=== PATIENT | male | born 1955 | race Caucasian/White ===

== ENCOUNTER 2016-07-08 13:10 | Emergency (ER) | payer OTHER ==
[2016-07-08] MEDS ORDERED: ALBUTEROL SO4 2.5/IPRATROPIUM 0.5 INH SOL 3 ML VIAL.NEB. NEB ONE ×5 (13:15→13:48)
[2016-07-08 13:20] VITALS: BMI 27.8
[2016-07-08] MEDS ORDERED: methylPREDNISolone NA SUCC 125 MG/2 ML VIAL IVPB ONE (13:25)
[2016-07-08] MEDS ORDERED: methylPREDNISolone NA SUCC 125 MG/2 ML VIAL ONE (13:31)
[2016-07-08] MEDS ORDERED: MAGNESIUM SULF 50% (8.12 MEQ/2 ML-1 GM VIAL) IVPB ONE (13:47)
--- NOTE | 2016-07-08 13:48 | PDOC ---
History of Present Illness - General Chief Complaint: Shortness of Breath Stated Complaint: SOB, COUGH Time Seen by Provider: 07/08/16 13:14 History Source: Patient Exam Limitations: No Limitations - History of Present Illness Initial Comments: 07/08/16 13:48 This is a 61 yo M with a known history of Asthma who presents to the ER with a complaint of shortness of breath He has a history of benign intermittent asthma, last flair 5 years ago (no prior intubations, no prior prednisone burst) Pt reports dyspnea on exertion No shortness of breath with laying Unsure of his triggers He presents to the ER today stating that intermittently over the past few months , his asthma has been worsening This past week, his breathing has severely worsened No fevers or chills No recent URI No ill contacts Pt had a PMD (at [facility]), has not seen him in a long time PMH: Asthma PSH: denies Meds: Claritin, Albuterol ALL: NKDA SOcial: tobacco use (stopped 20y ago), GENERAL/CONSTITUTIONAL: No: fever, chills, weakness, loss of appetite. HEAD, EYES, EARS, NOSE AND THROAT: No: change in vision, ear pain, discharge, sore throat, throat swelling. CARDIOVASCULAR: No: chest pain, lightheadedness, palpitations, syncope RESPIRATORY: Yes: cough, shortness of breath, wheezing, No:hemoptysis, stridor. GASTROINTESTINAL: No: nausea, vomiting, diarrhea, abdominal cramping, rectal bleeding, constipation. GENITOURINARY: No: dysuria, hematuria, frequency, urgency, flank pain. MUSCULOSKELETAL: No: back pain, neck pain, joint pain, muscle swelling or pain SKIN AND BREASTS: No: lesions, pallor, rash or easy bruising. NEUROLOGIC: No: headache, vertigo, paresthesias, weakness ENDOCRINE: No: unexplained weight gain or loss HEMATOLOGIC/LYMPHATIC: No: anemia, easy bleeding, swelling nodes. GENERAL: The patient is in no acute distress. HEAD: Normal with no signs of trauma. EYES: PERRLA, EOMI, sclera anicteric, conjunctiva clear. ENT: Ears normal, nares patent, oropharynx clear without exudates. Moist mucous membranes. NECK: Normal range of motion, supple without lymphadenopathy, JVD, or masses. LUNGS: bilateral inspiratory and expiratory wheezing all lung parra HEART:Regular rate and rhythm, normal S1 and S2 without murmur, rub or gallop. ABDOMEN: Soft, nontender, normoactive bowel sounds. No guarding, no rebound. No masses palpable. EXTREMITIES: Normal range of motion, no edema. No clubbing or cyanosis. No erythema, or tenderness. NEUROLOGICAL: Cranial nerves II through XII grossly intact. Normal speech. No focal neurological deficits. MUSCULOSKELETAL: Back non-tender to palpation, no CVA tenderness SKIN: Warm, Dry, normal turgor, no rashes or lesions noted. Past History - Past Medical History Allergies/Adverse Reactions: Allergies Allergy/AdvReac Type Severity Reaction Status Date / Time No Known Allergies Allergy Verified 07/08/16 13:14 Home Medications: Ambulatory Orders Albuterol 0.083% Nebulizer Audra [Ventolin 0.083% Nebulizer Soln -] 1 neb NEB Q6H PRN #30 vial 07/08/16 Albuterol Sulfate Inhaler - [Ventolin HFA Inhaler -] 1 - 2 inh PO QID PRN #1 inhaler 07/08/16 Albuterol Sulfate Inhaler - [Ventolin Hfa Inhaler -] 1 - 2 inh PO QID PRN Azithromycin [Zithromax 250mg Tablets -] 250 mg PO UTDICT #6 tab 07/08/16 Guaifenesin [Mucinex -] 600 mg PO BID #14 tablet.er 07/08/16 Loratadine [Claritin] 10 mg PO DAILY 07/08/16 Prednisone [Deltasone -] 60 mg PO DAILY #12 tablet 07/08/16 Asthma: Yes - Psycho/Social/Smoking Cessation Hx Anxiety: No Suicidal Ideation: No Smoking History: Former smoker Have you smoked in the past 12 months: No Information on smoking cessation initiated: No Hx Alcohol Use: Yes (occasional) *Physical Exam - Vital Signs Last Vital Signs Temp Pulse Resp BP Pulse Ox 98.7 F 112 H 28 H 167/99 92 L 07/08/16 13:10 07/08/16 13:10 07/08/16 13:10 07/08/16 13:10 07/08/16 13:10 ED Treatment Course - LABORATORY CBC & Chemistry Diagram: 07/08/16 13:37 07/08/16 13:37 - RADIOLOGY Radiology Studies Ordered: Category Date Time Status CHEST X-RAY PORTABLE* [RAD] Stat Radiology 07/08/16 13:15 Ordered - Medications Given in the ED: ED Medications Discontinued Medications Generic Name Dose Route Start Last Admin Trade Name Leonid PRN Reason Stop Dose Admin Albuterol/Ipratropium 1 amp 07/08/16 13:15 07/08/16 13:24 Duoneb - NEB 07/08/16 13:16 1 amp ONCE ONE Administration Medical Decision Making - Medical Decision Making 07/08/16 13:56 Pt given one duo neb Insp and exp wheezing Will give additional nebs Will give magnesium Will re assess Pt will need to be admitted 07/08/16 14:28 Laboratory Tests 07/08/16 13:37 WBC 10.2 H Hgb 15.9 Hct 49.4 H Plt Count 322 Neutrophils % 80.4 Lymphocytes % 11.3 07/08/16 14:51 Laboratory Tests 07/08/16 13:37 Sodium 135 L Potassium 4.5 Chloride 102 Carbon Dioxide 26 BUN 15 Creatinine 1.0 Random Glucose 103 I have admitted this patient to the hospitalist service 07/08/16 15:17 I have reviewed this with the patient and explained my concern about him going home I understand that he feels better but I am very concerned that he will become more short of breath I am concerned that his wheezing could worsen to the point that he will need to be admitted to an ICU or require intubation or or have fci disability as a result of respiratory failure Pt states that his son is in the car, he can not stay in the hospital I have explained that he likely will only need to stay for one night and can then go home and we can work on getting his son home PT states he can not stay Pt nurse has also attempted to convince him of the importance of staying in the hospital given his overall condition He can not stay I have explained that he will likely return to the ER tonight and then will need to stay, I have explained he will have to sign out AMA as I am absolutely unequqivocally NOT in agreement with him leaving the ER at this time Will discharge on : Albuterol solution and inhaler Mucinex Abx Prednisone Note: The patient insists on leaving the emergency dept and is signing out against medical advice. The patient understands the risks and complications that may result from the refusal of medical care and admission which includes and permanent disability. The patient has the mental capacity of understanding the risks of refusing care and is capable of making an informed decision. The patient was instructed to return to the emergency department should he change his mind regarding medical care or should his condition worsen. The patient signed the Against Medical Advice form. *DC/Admit/Observation/Transfer Diagnosis at time of Disposition: Severe persistent asthma with (acute) exacerbation - Discharge Dispostion Disposition: AGAINST MEDICAL ADVICE Condition at time of disposition: Guarded Admit: No - Prescriptions Prescriptions: Prednisone [Deltasone -] 60 mg PO DAILY #12 tablet Guaifenesin [Mucinex -] 600 mg PO BID #14 tablet.er Albuterol 0.083% Nebulizer Audra [Ventolin 0.083% Nebulizer Soln -] 1 neb NEB Q6H PRN #30 vial PRN Reason: Wheezing Albuterol Sulfate Inhaler - [Ventolin HFA Inhaler -] 1 - 2 inh PO QID PRN #1 inhaler PRN Reason: Wheezing Azithromycin [Zithromax 250mg Tablets -] 250 mg PO UTDICT #6 tab - Patient Instructions Printed Discharge Instructions: DI for Asthma -- Adult Additional Instructions: Panchito Thank you for coming in to the ER today I am not comfortable with you going home If you feel short of breath, I want you to return to the ER immediately Please take the medications that were prescribed Please please please make a follow up appointment with your primary care physician within 2-3 days Return to the ER for any other concerns or complaints
[2016-07-08 13:58] LABS: BASOPHIL 0.5 % (0-2.0); EOSINOPHIL 3.2 % (0-4.5); MCHC 32.2 g/dl (32.0-35.9); MEAN CELL VOLUME 83.8 fl (80-96); MEAN PLT VOLUME 8.2 fl (7.5-11.1); NEUTROPHILS 80.4 % (42.8-82.8); PLATELET COUNT 322 K/MM3 (134-434); RDW 13.2 % (11.9-15.9); WHITE BLOOD COUNT 10.2 K/mm3 (4.0-10.0)
[2016-07-08 14:20] LABS: ALBUMIN 4.4 g/dl (3.5-5.0); ALK PHOS 75 U/L (32-92); ANION GAP 7 (8-16); BILIRUBIN,TOTAL 1.2 mg/dl (0.2-1.0); CO2 26 mmol/L (22-28); GLUCOSE,RANDOM 103 mg/dl (74-106); SGOT/AST 25 U/L (10-42); SGPT/ALT 23 U/L (10-40)
[2016-07-08 15:46] VITALS: BP 121/59; PULSE 100; TEMP 98.4
== END 2016-07-08 15:45 | disposition left against medical advice (07) ==
LOC: FER 13:10
PROC: 3E0F7GC Introduction of Other Therapeutic Substance into Respiratory Tract, Via Natural or Artificial Opening (ICD-10-PCS; principal; 2016-07-08)
PROC: 3E0F7GC Introduction of Other Therapeutic Substance into Respiratory Tract, Via Natural or Artificial Opening (ICD-10-PCS; 2016-07-08)
PROC: 3E0333Z Introduction of Anti-inflammatory into Peripheral Vein, Percutaneous Approach (ICD-10-PCS; 2016-07-08)
PROC: 3E033GC Introduction of Other Therapeutic Substance into Peripheral Vein, Percutaneous Approach (ICD-10-PCS; 2016-07-08)
DX: J45.51 Severe persistent asthma with (acute) exacerbation (principal)
CPT/HCPCS: 36415; 71010-TC; 80053; 85025; 94640; 96374; 96375; 99284-25

== ENCOUNTER 2023-09-12 14:43 | Emergency (ER) | payer SELFPAY ==
[2023-09-12 15:40] VITALS: TEMP 98; BMI 28.5
[2023-09-12] MEDS ORDERED: FLUORESCEIN NA 1 EA STRIP ONE (16:14)
[2023-09-12] MEDS ORDERED: TETRACAINE 0.5% OPHTH SOLN 2 ML BOTTLE ONE (16:14)
[2023-09-12] MEDS: FLUORESCEIN NA 1 EA STRIP OU ONE (16:15)
[2023-09-12] MEDS: TETRACAINE 0.5% HCL 0.6ML DROPPER.BOTTLE OU ONE (16:15)
[2023-09-12 18:55] LABS: HEMATOCRIT 46.7 % (35.4-49); HEMOGLOBIN 15.4 G/dL (11.7-16.9); MCH 28.6 pg (25.7-33.7); MEAN CELL VOLUME 86.6 fl (80-96); MEAN PLT VOLUME 8.4 fl (7.5-11.1); PLATELET COUNT 196.3 10^3/uL (134-434); RBC 5.39 10^6/uL (4.00-5.60); RDW 14.4 % (11.9-15.9); WHITE BLOOD COUNT 5.8 10^3/uL (4.0-10.8)
[2023-09-12 19:01] LABS: PLATELET ESTIMATE ADEQUATE
[2023-09-12 19:06] LABS: INR 1.01 (0.83-1.09); PROTHROMBIN TIME (PATIENT) 11.7 SEC (9.7-13.0)
[2023-09-12 19:08] LABS: ACTIVATED PTT 32.9 SECONDS (25.2-36.5)
[2023-09-12 19:16] LABS: ALBUMIN 4.8 g/dl (3.4-5.0); BILIRUBIN,TOTAL 0.5 mg/dl (0.2-1); CALCIUM 9.4 mg/dl (8.5-10.1); POTASSIUM 4.6 mmol/L (3.5-5.1); TOT PROT 7.5 g/dl (6.4-8.2)
[2023-09-12 20:32] VITALS: BP 128/76; PULSE 72; RESP 17
== END 2023-09-12 20:34 | disposition short-term general hospital (02) ==
LOC: FER 14:43
DX: H53.10 Unspecified subjective visual disturbances (principal); H53.132 Sudden visual loss, left eye; Z20.822 Contact with and (suspected) exposure to COVID-19
CPT/HCPCS: 0241U-QW; 36415; 70450-TC; 76512; 80053; 85027; 85610; 85651; 85730; 86140; 99285-25